=== PATIENT | female | born 1965 | race American Indian/Alaskan Native ===

== ENCOUNTER 2021-04-06 05:48 | Emergency (ER) | payer OTHER ==
[2021-04-06 05:55] VITALS: BP 136/65
[2021-04-06] MEDS ORDERED: IBUPROFEN 800 MG TAB PO ONE (06:37)
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
== END 2021-04-06 06:54 | disposition home or self-care (01) ==
LOC: ED 05:48
DX: M54.2 Cervicalgia (principal); M54.9 Dorsalgia, unspecified; V43.52XA Car driver injured in collision with other type car in traffic accident, initial encounter; Y93.89 Activity, other specified; Y92.89 Other specified places as the place of occurrence of the external cause; Y99.8 Other external cause status
CPT/HCPCS: 99282

== ENCOUNTER 2021-04-29 20:15 | Emergency (ER) | payer OTHER ==
--- NOTE | 2021-04-29 20:47 | XRay Report ---
RIGHT SHOULDER 3 VIEW(S) INDICATION / CLINICAL INFORMATION: INJURY right shoulder pain COMPARISON: None available. FINDINGS: BONES / JOINT(S): No acute fracture or subluxation. No significant arthritis. SOFT TISSUES: No significant abnormality. ADDITIONAL FINDINGS: None. Signer Name: Fan Rojas MD Signed: 04/29/2021 8:43 PM Workstation Name: [id number]
--- NOTE | 2021-04-29 23:49 | Emergency Department Report ---
HPI - General Chief Complaint: Extremity Injury, Upper Time Seen by Provider: 04/29/21 23:31 - HPI HPI: 55-year-old -[place] female presents to the emergency department with a complaint of right shoulder pain that has been going on for the past 3 to 4 days. She also complains of swelling to the anterior right shoulder and says that this morning it was the size of a "golf ball." She has been using ibuprofen with some transient relief. She has decreased range of motion of the right upper extremity secondary to the shoulder pain. She denies any trauma, injury, respiratory distress, or known inciting event. She denies any past medical history. No recent travel or sick contacts at home. ED Past Medical Hx - Past Medical History Previous Medical History?: No - Surgical History Past Surgical History?: No - Medications Home Medications: Home Medications Medication Instructions Recorded Confirmed Last Taken Type Cyclobenzaprine [Flexeril] 10 mg PO TID PRN #12 tablet 04/06/21 Unknown Rx Ibuprofen [Motrin 800 MG tab] 800 mg PO Q8H PRN #20 tablet 04/06/21 Unknown Rx HYDROcodone/APAP 5-325 [[place] 1 each PO Q6HR PRN #12 tablet 04/29/21 Unknown Rx 5/325] ED Review of Systems ROS: Stated complaint: ARM PAIN Other details as noted in HPI Comment: All other systems reviewed and negative Constitutional: denies: chills, fever Respiratory: denies: cough, shortness of breath Cardiovascular: denies: chest pain, palpitations Gastrointestinal: denies: nausea, vomiting Musculoskeletal: joint swelling, arthralgia Neurological: denies: numbness, paresthesias Physical Exam - Physical Exam Vital Signs: Vital Signs 04/29/21 20:19 Temperature 97.6 F Pulse Rate 94 H Respiratory 16 Rate Blood Pressure 155/77 [Left] O2 Sat by Pulse 83 L Oximetry Physical Exam: GENERAL: The patient is well-developed well-nourished. HENT: Normocephalic. Atraumatic. Patient has moist mucous membranes. EYES: Extraocular motions are intact. NECK: Supple. Trachea is midline. CHEST/LUNGS: Clear to auscultation. There is no respiratory distress noted. HEART/CARDIOVASCULAR: Regular. There is no tachycardia. There is no murmur. SKIN: Skin is warm and dry. NEURO: The patient is awake, alert, and oriented. The patient is cooperative. The patient has no focal neurologic deficits. Normal speech. MUSCULOSKELETAL: Tenderness to palpation to the anterior right shoulder. No obvious deformity. Radial pulse +2/4 and capillary refill less than 2 seconds to the affected right upper extremity. Decreased range of motion of the right upper extremity secondary to pain. ED Course Vital Signs 04/29/21 20:19 Temperature 97.6 F Pulse Rate 94 H Respiratory 16 Rate Blood Pressure 155/77 [Left] O2 Sat by Pulse 83 L Oximetry ED Medical Decision Making - Radiology Data Radiology results: image reviewed interpreted by me: X-ray of the right shoulder does not show any fracture, dislocation, or any acute process. - Medical Decision Making This patient presents to the emergency department with a 3 to 4-day history of right shoulder pain. She does not know of any trauma, injury or known inciting event. She is neurovascularly intact. Most of the tenderness to palpation is to the anterior right shoulder. There is restriction to range of motion secondary to pain. There is no obvious swelling, skin color change, warmth, fluctuance. X-ray does not show any fracture, dislocation, foreign body, or any other acute process. Patient will be placed in a shoulder sling and given a prescription for pain medication and outpatient referrals for an orthopedist. - Differential Diagnosis Rotator cuff strain, tendinitis, bursitis Critical Care Time: No Critical care attestation.: If time is entered above; I have spent that time in minutes in the direct care of this critically ill patient, excluding procedure time. ED Disposition Clinical Impression: Right shoulder pain Qualifiers: Chronicity: acute Qualified Code(s): M25.511 - Pain in right shoulder Disposition: 01 HOME / SELF CARE / HOMELESS Is pt being admited?: No Condition: Stable Instructions: Shoulder Pain Additional Instructions: Please follow-up with orthopedist in the next few days. I am giving you a referral for 2 different local orthopedic groups, Dr. Barba, and [facility]. You have been prescribed a medication that is sedating and therefore should not be taken prior to driving, working, and responsible for children and in no way should be mixed with alcohol of any quantity. Return to the emergency department with any worsening of your symptoms, new or concerning symptoms not addressed during this current emergency department visit, or with any acute distress. Prescriptions: HYDROcodone/APAP 5-325 [[place] 5/325] 1 each PO Q6HR PRN #12 tablet PRN Reason: Pain Referrals: PRIMARY CARE, [Primary Care Provider] - 2-3 Days WESLEY BARBA MD [Staff Physician] - 2-3 Days [facility] [Provider Group] - 2-3 Days Time of Disposition: 23:53
[2021-04-30 02:59] VITALS: BP 120/85
== END 2021-04-30 | disposition home or self-care (01) ==
LOC: ED 20:15
DX: M25.511 Pain in right shoulder (principal); Z79.899 Other long term (current) drug therapy
CPT/HCPCS: 99283